=== PATIENT | male | born 1995 | race Caucasian/White ===

== ENCOUNTER 2021-10-03 12:54 | Emergency (ER) | payer OTHER, SELFPAY ==
[2021-10-03 12:56] VITALS: BP 139/91; PULSE 88; RESP 16; TEMP 35.6; O2SAT 100
--- NOTE | 2021-10-03 13:04 | ED.EYEPROB ---
HPI - Eye Problem General Chief complaint: Eye Problems Stated complaint: blurred vision Time Seen by Provider: 10/03/21 13:00 Source: patient Mode of arrival: ambulatory Limitations: no limitations History of Present Illness HPI Narrative: Tyler is a 25-year-old male patient presenting to the clinic today with complaints of right pain and watering since this morning. 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 He denies any known injury. Related Data Allergies Allergy/AdvReac Type Severity Reaction Status Date / Time No Known Allergies Allergy Verified 10/03/21 13:04 Review of Systems Review of Systems: Pertinent positives per HPI. Patient denies any fever, chills, rash, headache, dizziness, cough, runny nose, sore throat, shortness of breath, chest pain, palpitations, nausea, vomiting, diarrhea, constipation, abdominal pain, or any urinary issues. PMFSH Comments At the time of my signature, I reviewed and agree with the nursing past medical, surgical, social, and family history. There is no relevant family history pertinent to the patient complaint. Exam Narrative: General: Well-developed, well nourished, in no apparent distress Head: Normocephalic, atraumatic Eyes: Pupils equally round and reactive to light bilaterally, EOM intact, left sclera and conjunctive clear, right sclera and conjunctive is injected, watery discharge to the right eye, Bearden lamp exam performed and he has a corneal abrasion over the pupil, lids normal Cardio: Regular rate and rhythm, s1 and s2 normal, no murmur appreciated. Resp: Clear to auscultation bilaterally anteriorly and posteriorly, no rhonchi, rales, wheezing or rubs Course Course Emergency Course: Portions of this record may have been created with voice recognition software. Level of Care: Express Care Visit Vital Signs Vital signs: Vital Signs Temperature 35.6 C L 10/03/21 12:56 Pulse Rate 88 10/03/21 12:56 Respiratory Rate 16 10/03/21 12:56 Blood Pressure 139/91 H 10/03/21 12:56 Pulse Oximetry 100 10/03/21 12:56 Oxygen Delivery Room Air 10/03/21 12:56 Temperature 35.6 C L 10/03/21 12:56 Pulse Rate 88 10/03/21 12:56 Respiratory Rate 16 10/03/21 12:56 Blood Pressure 139/91 H 10/03/21 12:56 Pulse Oximetry 100 10/03/21 12:56 Oxygen Delivery Room Air 10/03/21 12:56 Vital signs reviewed Procedures Other Procedure Procedure 1: Other Procedure: Verbal consent obtained for Bearden lamp exam. 2 drops of tetracaine topical anesthetic was instilled with into the right eye. Good anesthesia provided. Fluorescein stain of the R eye was performed without uptake of dye. Eye irrigation used to flush excessive stain, no corneal abrasion noted across the center of the pupil, NO FB, ulcer, or dendritic lesions. Upper lid and lower eyelid was everted and no FB or lesions were noted. NO Orly sign. Normal saline irrigation eye solution was used to irrigate the eye and the patient tolerated the procedure well, no adverse reaction or complications. MDM - Eye Problem MDM Narrative Medical decision making narrative: At the time of visit patient was resting comfortably on the exam table. Bearden lamp exam performed and patient has a corneal abrasion across the center of the right pupil. Patient patient improved with proparacaine drops. Prescription for E-Mycin ointment sent to pharmacy and supportive measures were discussed with the patient he voiced understanding of discharge instructions. Differential Diagnosis Differential diagnosis: Likely corneal abrasion, conjunctivitis, corneal ulcer and ruptured globe Discharge Plan Discharge Clinical Impression: Corneal abrasion Qualifiers: Encounter type: initial encounter Laterality: right Qualified Code(s): S05.01XA - Injury of conjunctiva and corneal abrasion without foreign body, right eye, initial encounter Patient Dispos
== END 2021-10-03 13:12 | disposition home or self-care (01) ==
PROVIDERS: Emergency Provider Nurse Practitioner Family
DX: S05.01XA Injury of conjunctiva and corneal abrasion without foreign body, right eye, initial encounter (principal); X58.XXXA Exposure to other specified factors, initial encounter; Y99.0 Civilian activity done for income or pay; K21.9 Gastro-esophageal reflux disease without esophagitis
CPT/HCPCS: 99203; A9270; G0463

== ENCOUNTER 2021-11-23 13:26 | Emergency (ER) | payer OTHER, SELFPAY ==
[2021-11-23 13:36] VITALS: BP 106/61; PULSE 116; RESP 16; TEMP 39.9; O2SAT 99
[2021-11-23] MEDS: ACETAMINOPHEN 500 MG TABLET 1000 MG PO (13:58)
--- NOTE | 2021-11-23 14:04 | ED.URI ---
HPI - URI/Sore Throat General Chief Complaint: Upper Respiratory Infection Stated Complaint: FEVER Time Seen by Provider: 11/23/21 13:38 Source: patient, RN notes reviewed and old records reviewed Mode of arrival: ambulatory Limitations: no limitations History of Present Illness HPI Narrative: 25-year-old male presents to the [facility] with complaints of fever. Patient complains of generalized body aches, fevers, just not feeling well. Reports a scratchy throat and headache. Symptoms started on Monday. Has taken ibuprofen yesterday. Related Data Home Medications Medication Instructions Recorded Confirmed No Home Medications 11/23/21 11/23/21 Allergies Allergy/AdvReac Type Severity Reaction Status Date / Time No Known Allergies Allergy Verified 10/03/21 13:04 Review of Systems Review of Systems: All systems reviewed & are unremarkable except as noted in HPI and below Constitutional: Constitutional: Reports as per HPI, Reports no additional constitutional complaints, Reports chills, Reports fatigue and Reports fever(s) Eyes: Eyes: Reports no additional eye complaints ENT: Reports as per HPI and Reports sore throat Cardiovascular: Cardiovascular: Reports no additional cardiovascular complaints Respiratory: Respiratory: Reports no additional respiratory complaints Gastrointestinal: Gastrointestinal: Reports no additional gastrointestinal complaints Musculoskeletal: Musculoskeletal: Reports no additional musculoskeletal complaints Integumentary/Breasts: Skin/Breast: Reports system reviewed and no additional complaints, except as docu Neurologic: Reports system reviewed and no additional complaints, except as documented Psychiatric: Psychiatric: Reports no additional psychiatric complaints Allergic/Immunologic: Allergic/Immunologic: Reports no additional allergic/immunologic complaints PMFSH Comments At the time of my signature, I reviewed and agree with the nursing past medical, surgical, social, and family history. There is no relevant family history pertinent to the patient complaint. Exam Const: General: no acute distress, alert and ill appearing acutely (mild) Nutritional Appearance: well nourished Orientation/consciousness: patient oriented x3 Limitations: no limitations HENMT: Head: normal to inspection Ears: external ears normal General nose exam: Normal external nose present and Normal nares present Face and sinus: normal facial exam Mouth: Yes Normal oral and palatal mucosa present, Yes lip normal and Yes moist mucous membranes Teeth and gingiva: dentition normal Throat: posterior oropharynx normal and uvula midline Eyes: General: appearance normal, both eyes and all related structures Conjunctivae: conjunctivae normal Pupils: Equal, round and reactive pupils present Neck: Neck: normal visual inspection, no lymphadenopathy and no meningeal signs Chest: Chest palpation & inspection: normal inspection of the chest Resp: Effort & Inspection: normal respiratory effort and no use of accessory muscles Auscultation: clear to auscultation bilaterally, no crackles, no rales, no rhonchi and no wheezes Cardio: Rate: regular rate Rhythm: regular rhythm Back/Spine/Pelvis: Cervical Spine: normal cervical lordosis Thoracic/Lumbar Spine: thoracic and lumbar spine normal to inspection Skin: General skin exam: normal color Rashes: no rashes Wounds: no wounds Neuro: General: patient oriented x3, moves all extremities, no meningeal signs and no focal motor deficits Cranial nerves: Yes Equal, round and reactive pupils present Speech: normal speech Gait exam (Neuro): Normal gait present Extrem: General: normal to inspection, full ROM and capillary refill normal Psych: Appearance: grossly normal and well kempt Mental Status: mental status grossly normal Affect: normal affect Attitude: cooperative Thought content: Yes Normal thought content present Course Course Emergency Course: Discharge
== END 2021-11-23 14:36 | disposition home or self-care (01) ==
PROVIDERS: Emergency Provider Nurse Practitioner
DX: U07.1 COVID-19 (principal)
CPT/HCPCS: 87081; 87426; 87804; 87880; 99213; A9270; C9803; G0463

== ENCOUNTER 2022-10-04 14:22 | Emergency (ER) | payer OTHER, SELFPAY ==
[2022-10-04 14:36] VITALS: BP 132/75; PULSE 82; RESP 16; TEMP 36.2; O2SAT 100
--- NOTE | 2022-10-04 14:54 | ED.URI ---
HPI - URI/Sore Throat General Chief Complaint: Upper Respiratory Infection Stated Complaint: COVID+ Time Seen by Provider: 10/04/22 14:54 Source: patient and RN notes reviewed Mode of arrival: ambulatory Limitations: no limitations History of Present Illness HPI Narrative: 26 y/o male presented after testing positive for covid today. Symptoms started 3 days ago, after known exposure to covid. Reports headache, fatigue, body aches, and coughing up green sputum. Not taking anything for symptoms. Denies shortness of breath, wheezing, nausea vomiting, diarrhea or fever. He states he needs an official test for his work. MD elicited complaint: cough Related Data Home Medications Medication Instructions Recorded Confirmed No Home Medications 11/23/21 10/04/22 Allergies Allergy/AdvReac Type Severity Reaction Status Date / Time No Known Allergies Allergy Verified 10/04/22 15:03 Review of Systems Review of Systems: CONSTITUTIONAL: Endorses malaise, chills, sweats, fever EYES: Denies visual changes, redness, or discharge ENT: Reports rhinorrhea, congestion, sinus pain, denies otalgia, sore throat CARDIOVASCULAR: Denies chest pain, palpitations, edema RESPIRATORY: Reports cough, post nasal drainage. Denies dyspnea GASTROINTESTINAL: Denies abdominal pain, nausea, vomiting, diarrhea SKIN: Denies rash or itching MUSCULOSKELETAL: Endorses myalgia NEUROLOGIC: endorses headache PMFSH Past Medical History Medical History (Updated 10/04/22 @ 15:02 by Alka Wood, BJORN) No pertinent past medical history Exam Narrative: GENERAL: midly Ill-appearing, nontoxic no acute distress. HEAD: Normocephalic EYES: PERRLA, conjunctivae clear ENT: Mucous membranes moist. TMs pearly diaz with dull light reflex bilaterally; no tragal tenderness. Oropharynx erythematous without lesions or exudate NECK: Supple. No lymphadenopathy CHEST: Clear to auscultation, breath sounds equal. No wheezing, rhonchi, rales, or stridor. No respiratory distress, speaks in full sentences. HEART: Regular rate and rhythm. No murmur heard. SKIN: Warm, dry, no rash. NEURO: Alert and oriented x3. PSYCH: Normal mood and affect Course Course Emergency Course: Patient is aware of diagnosis, understands and agrees to treatment plan. Anticipatory guidance given. Patient agrees to follow-up as directed and is aware of reasons to seek care at the emergency department. Portions of this record may have been created with voice recognition software Level of Care: Express Care Visit Vital Signs Vital signs: Vital Signs Temperature 97.2 F L 10/04/22 14:36 Pulse Rate 82 10/04/22 14:36 Respiratory Rate 16 10/04/22 14:36 Blood Pressure 132/75 10/04/22 14:36 Pulse Oximetry 100 10/04/22 14:36 Oxygen Delivery Room Air 10/04/22 14:36 Temperature 97.2 F L 10/04/22 14:36 Pulse Rate 82 10/04/22 14:36 Respiratory Rate 16 10/04/22 14:36 Blood Pressure 132/75 10/04/22 14:36 Pulse Oximetry 100 10/04/22 14:36 Oxygen Delivery Room Air 10/04/22 14:36 reviewed MDM - URI/Sore Throat MDM Narrative Medical decision making narrative: POS covid test reviewed with pt. Discussed physical exam findings. Advised supportive measures and signs/symptoms to go to the ER. Pt is appropriate for outpt treatment and f/u. Differential Diagnosis Differential diagnosis: Likely upper respiratory infection, sinusitis and viral infection Discharge Plan Discharge Clinical Impression: COVID-19 Patient Disposition: Home, Self-Care Condition: Stable Instructions: COVID-19 (Coronavirus Disease 2019) (ED) Additional Instructions: Your rapid COVID test was positive today. The following recommendations have been made by the CDC and local Health Departments, regarding COVID-19: -Those individuals with mild cases of COVID-19 can generally be discontinued from isolation 5 days AFTER the onset of symptoms AND the resolution of fever for
== END 2022-10-04 15:21 | disposition home or self-care (01) ==
PROVIDERS: Emergency Provider Nurse Practitioner Family; PCP Nurse Practitioner Family
DX: U07.1 COVID-19 (principal)
CPT/HCPCS: 87426; 99213; C9803; G0463

== ENCOUNTER 2023-06-30 15:15 | Emergency (ER) | payer OTHER, SELFPAY ==
[2023-06-30 15:31] VITALS: BP 123/82; PULSE 91; RESP 16; TEMP 36.4; O2SAT 100
--- NOTE | 2023-06-30 15:35 | ED.URI ---
HPI - URI/Sore Throat General Chief Complaint: Upper Respiratory Infection Stated Complaint: Sinus Time Seen by Provider: 06/30/23 15:35 Source: patient Mode of arrival: ambulatory Limitations: no limitations History of Present Illness HPI Narrative: 27-year-old male presents with complaint of nasal congestion, sinus pressure, postnasal drainage, runny nose. Past 3 weeks. Reports sinus pressure over the past several days. Had a bad headache and sinus pressure when bending over today. Intermittently taking Benadryl and today reports fatigue, low-grade fever. Did home COVID test and was negative. All systems reviewed and negative except as noted above. Related Data Allergies Allergy/AdvReac Type Severity Reaction Status Date / Time No Known Allergies Allergy Verified 06/30/23 15:17 Review of Systems Review of Systems: CONSTITUTIONAL: reports fever. Denies chills, or sweats. EYES: Denies visual changes, redness, or discharge. ENT: Reports rhinorrhea, congestion, sore throat, or otalgia. CARDIOVASCULAR: Denies chest pain, palpitations, or edema. RESPIRATORY: Denies cough or dyspnea. GASTROINTESTINAL: Denies abdominal pain, nausea, vomiting, or diarrhea. GENITOURINARY: Denies dysuria or hematuria. SKIN: Denies rash or itching. MUSCULOSKELETAL: Denies back pain, joint pain, or myalgia. NEUROLOGIC: Denies headache, numbness, or weakness. PSYCHIATRIC: Denies anxiety or depression. All other systems reviewed are negative, except as documented in HPI. [facility] Past Medical History Medical History (Updated 06/30/23 @ 15:45 by Dinorah Titus NP) No pertinent past medical history Comments At time of signature, agree with nursing past medical, surgical, social and family history. There is no relevant family history pertinent to the presenting complaint. Exam Narrative: GENERAL: This is a well-nourished, well-developed patient, in no apparent distress. HEAD: normocephalic, atraumatic. EYES: PERRL. Sclera clear/white. Vision is grossly intact. EARS: External ears normal, auditory canals clear and without drainage, Fluid bilateral TMs without perforation. Hearing grossly intact. NOSE: External nose normal with erythema and swelling to bilateral nares with moderate congestion, purulent nasal drainage. Bilateral maxillary sinus tenderness on palpation. THROAT: Mucous membranes moist, Erythema and drainage posterior pharynx. NECK: Neck supple, non-tender without lymphadenopathy, masses or thyromegaly. CARDIOVASCULAR: Regular rate and rhythm without murmurs, gallops, or rubs. RESPIRATORY: Clear to auscultation. Breath sounds equal bilaterally. No wheezes, rales, or rhonchi. SKIN: warm, Dry, intact with no suspicious lesions or rash, good texture and turgor. NEURO: awake, alert, and oriented to person, place and time. There were no obvious focal neurologic abnormalities. EXTREMITIES: No joint tenderness, effusion, or edema noted. Course Course Level of Care: Express Care Visit Vital Signs Vital signs: Vital Signs Temperature 36.4 C 06/30/23 15:31 Pulse Rate 91 06/30/23 15:31 Respiratory Rate 16 06/30/23 15:31 Blood Pressure 123/82 06/30/23 15:31 Pulse Oximetry 100 06/30/23 15:31 Oxygen Delivery Room Air 06/30/23 15:31 Temperature 36.4 C 06/30/23 15:31 Pulse Rate 91 06/30/23 15:31 Respiratory Rate 16 06/30/23 15:31 Blood Pressure 123/82 06/30/23 15:31 Pulse Oximetry 100 06/30/23 15:31 Oxygen Delivery Room Air 06/30/23 15:31 Reviewed MDM - URI/Sore Throat MDM Narrative Medical decision making narrative: negative influenza test. Patient had negative COVID test at home. Will treat patient with prednisone and antibiotic for bacterial sinusitis due to exam findings and duration of symptoms. Recommend patient start [id number] Zyrtec and Flonase.\ Patient is aware of diagnosis, understands and agrees to treatment plan. Anticipatory guid
== END 2023-06-30 15:50 | disposition home or self-care (01) ==
PROVIDERS: Emergency Provider Nurse Practitioner Family
DX: J01.90 Acute sinusitis, unspecified (principal)
CPT/HCPCS: 87804; 99213; G0463